=== PATIENT | male | born 1950 | race African-American/Black ===

== ENCOUNTER 2016-06-09 12:43 | Emergency (ER) | payer MEDICARE, OTHER ==
[~2016-06-09] VITALS: Ht 175.3 cm; Wt 86.2 kg
[~2016-06-09 12:43] MED LIST: BENADRYL ALLERG25 M1 PO; CATAPRES0.1 MG ORAL; HYDROCHLOROTH12.5 M2 ORAL; NAPHCON-A EYE D15 ML OP; PREDNISONE20 MG ORAL; TENORMIN25 MG ORAL
[2016-06-09 13:20] VITALS: BP 164/98
--- NOTE | 2016-06-09 13:23 | Emergency Room Report ---
History of Present Illness General Chief Complaint: Laceration Present Illness HPI 66 YO Male presents to the ED c/o dry cracking heels bilaterally. since the beginning of summer. Patient denies itching, redness, or swelling of the feet. Patient states that he has been applying aloe vera gel with minimal relief. Patient reports that the dryness has increased over the course of this past week and on the right foot there is one crack that was bleeding 2 days ago. Patient denies history of neuropathy. pt. denies increased temperature to the touch. pt. reports 4/10 pain. Denies numbness tingling or loss of sensation or gross motor movements of the extremities, incontinence of bowel or bladder. Denies CP, Palpitations, LOC , AMS, dizziness, Changes in Vision, Sensation, paresthesias, or a sudden severe headache. Allergies: Coded Allergies: No Known Allergies (Unverified , 08/22/14) Patient History Past Medical History: see triage record Past Surgical History: none Pertinent Family History: none Immunizations: UTD Reviewed Nursing Documentation: PMH: Agreed, PSxH: Agreed Nursing Documentation-PMH Hx Hypertension: Yes Review of Systems All Other Systems: negative except mentioned in HPI Physical Exam Vital Signs Date Time Temp Pulse Resp B/P Pulse Ox O2 Delivery O2 Flow Rate FiO2 06/09/16 13:00 98.1 61 20 164/98 98 Room Air Sp02 EP Interpretation: reviewed, normal General Appearance: no apparent distress, alert, GCS 15, non-toxic Head: normocephalic, atraumatic Eyes: bilateral eye PERRL, bilateral eye normal inspection ENT: hearing grossly normal, normal pharynx, no angioedema, normal voice Neck: full range of motion, supple/symm/no masses Respiratory: chest non-tender, lungs clear, normal breath sounds, speaking full sentences Cardiovascular #1: regular rate, rhythm, no edema Musculoskeletal: back normal, gait/station normal, normal range of motion, non- tender, no calf tenderness Neurologic: alert, oriented x3, responsive, motor strength/tone normal, sensory intact, speech normal Psychiatric: judgement/insight normal, memory normal, mood/affect normal, no suicidal/homicidal ideation Skin: normal color, no rash, warm/dry, well hydrated, other - moderately dry heels bilaterally with callus noted, not suspicious for fungal infection at this time. no evidence of secondary infection Lymphatic: no adenopathy Medical Decision Making PA Attestation Dr. Kraft is my supervising Physician whom patient management has been discussed with. Diagnostic Impression: Primary Impression: Heel callus ER Course Pt. presents to the ED c/o dry cracking heels bilaterally. since the beginning of summer. Ddx considered but are not limited to cellulitis, callus, tinea, fracture, d/L , gout Vital signs: are WNL, pt. is afebrile H&PE are most consistent with bilateral heel calluses ORDERS: none required at this time, the diagnosis is clinical ED INTERVENTIONS: None required at this time. DISCHARGE: At this time pt. is stable for d/c to home. Will provide printed patient care instructions, and any necessary prescriptions. Care plan and follow up instructions have been discussed with the patient prior to discharge. Last Vital Signs Date Time Temp Pulse Resp B/P Pulse Ox O2 Delivery O2 Flow Rate FiO2 06/09/16 13:00 98.1 61 20 164/98 98 Room Air Disposition: HOME, SELF-CARE Condition: Stable Scripts Emollient Combination No.73 (EUCERIN INTENSIVE REPAIR) 78 Gm Cream..g. 1 APPLIC TP BID for 14 Days, #78 GM Prov: Nathaly Ly 06/09/16 Bacitracin Zinc/Polymyx B Sulf (HM DOUBLE ANTIBIOTIC OINTMENT) 28.4 Gm Oint...g. 1 GM TP BID for 14 Days, #56.8 GM Prov: Nathaly Ly 06/09/16 Patient Instructions: Corns and Calluses Additional Instructions: Take medications as directed. Follow up with [facility] in 3-5 days Return sooner to ED if new symptoms occur, or current symptoms become worse. - Please note that this Emergency Department Report was dictated using [employer] technology software, occasionally this can lead to erroneous entry secondary to interpretation by the dictation equipment. Nathaly Ly Jun 09, 2016 13:23
[2016-06-09] MEDS ORDERED: EUCERIN INTENSI TP (13:25)
[2016-06-09] MEDS ORDERED: HM DOUBLE ANT28.4 G1 TP (13:25)
[2016-06-09 13:42] VITALS: BP 164/98
== END 2016-06-09 13:42 | disposition home or self-care (01) ==
LOC: EMR 13:30
DX: L84 Corns and callosities (principal); I10 Essential (primary) hypertension
CPT/HCPCS: 99284

== ENCOUNTER 2017-10-25 05:15 | Emergency (ER) | payer MEDICARE, OTHER ==
[~2017-10-25] VITALS: Ht 175.3 cm; Wt 83.5 kg
[~2017-10-25 05:15] MED LIST changes: +EUCERIN INTENSI TP; +HM DOUBLE ANT28.4 G1 TP
[2017-10-25] MEDS ORDERED: Methocarbamol 750mg tab ORAL ONE (05:45)
[2017-10-25] MEDS ORDERED: Acetaminophen 500mg (ES) tab ORAL ONE (05:45)
[2017-10-25 05:50] VITALS: BP 212/110
[2017-10-25] MEDS ORDERED: ROBAXIN-750750 MG PO (05:53)
[2017-10-25] MEDS ORDERED: TYLENOL EXTRA500 MG ORAL (05:53)
--- NOTE | 2017-10-27 07:28 | Emergency Room Report ---
History of Present Illness General Chief Complaint: Pain Source: Patient Present Illness HPI 67-year-old male presents to ED complaining of hip pain. The pain for the last 2 weeks. Denies any recent injury or fall. Pain is throbbing, 10 out of 10, nonradiating. States he is able to walk but with a cane. No other aggravating or relieving factors. Denies any other associated symptoms Allergies: Coded Allergies: No Known Allergies (Unverified , 08/22/14) Patient History Past Medical History: HTN Past Surgical History: none Pertinent Family History: none Social History: Denies: smoking, alcohol use, drug use Immunizations: UTD Reviewed Nursing Documentation: PMH: Agreed; PSxH: Agreed Nursing Documentation-PMH Hx Hypertension: Yes Review of Systems All Other Systems: negative except mentioned in HPI Physical Exam Vital Signs Date Time Temp Pulse Resp B/P (MAP) Pulse Ox O2 Delivery O2 Flow Rate FiO2 10/25/17 05:18 98.0 73 16 212/110 99 Room Air 98.1 Sp02 EP Interpretation: reviewed, normal General Appearance: no apparent distress, alert, GCS 15, non-toxic Head: normocephalic Eyes: bilateral eye normal inspection, bilateral eye PERRL ENT: normal ENT inspection Neck: normal inspection Respiratory: normal inspection Cardiovascular #1: normal inspection Gastrointestinal: normal inspection Rectal: deferred Genitourinary: no CVA tenderness, no vertebral tenderness Musculoskeletal: pelvis stable, tender - paraspinal lumbar tendernessw Neurologic: alert, oriented x3, responsive, motor strength/tone normal, sensory intact, speech normal Psychiatric: normal inspection Skin: normal inspection Lymphatic: normal inspection Medical Decision Making Diagnostic Impression: Primary Impression: Back pain Qualified Codes: M54.5 - Low back pain ER Course Hospital Course 67-year-old male presents ED complaining of R hip pain. No evidence of trauma Differential diagnoses include: fx, dislocation, contusion Clinical course Patient placed on stretcher. After initial history, physical exam reveals elderly male in no acute distress. On exam there is full range of motion in the right hip. No pelvic instability. Patient does have pain to the right lower back. No midline tenderness. No flank pain. Patient states he confused his back pain for hip pain. Pain does appear muscular. Given lack of trauma and no focal neurological deficits, no imaging required. We will prescribe analgesics and muscle relaxers. Recommend close follow-up with PMD given medications here with symptosm improved Diagnosis - back pain Stable and discharged to home with prescription for Tylenol, Robaxin. Followup with PMD. Return to ED if symptoms recur or worsen Last Vital Signs Date Time Temp Pulse Resp B/P (MAP) Pulse Ox O2 Delivery O2 Flow Rate FiO2 10/25/17 05:50 98.1 16 212/110 99 Room Air 98.1 10/25/17 05:18 73 Status: improved Disposition: HOME, SELF-CARE Condition: Stable Scripts Methocarbamol* (ROBAXIN-750*) 750 Mg Tablet 750 MG PO TID, #21 TAB 0 Refills Prov: Juan Fierro MD 10/25/17 Acetaminophen* (TYLENOL EXTRA STRENGTH*) 500 Mg Tablet 500 MG ORAL Q8H PRN for Prn Headache/Temp > 101, #30 TAB 0 Refills Prov: Juan Fierro MD 10/25/17 Patient Instructions: Back Pain, Adult, [id number] Juan Fierro MD Oct 27, 2017 07:28
== END 2017-10-25 05:57 | disposition home or self-care (01) ==
LOC: EMR 05:40
DX: M25.551 Pain in right hip (principal); M54.5 Low back pain; I10 Essential (primary) hypertension
CPT/HCPCS: 99284

== ENCOUNTER 2019-07-14 11:41 | Emergency (ER) | payer MEDICARE, OTHER ==
[~2019-07-14] VITALS: Ht 175.3 cm; Wt 79.4 kg
[~2019-07-14 11:41] MED LIST changes: +ROBAXIN-750750 MG PO; +TYLENOL EXTRA500 MG ORAL
[2019-07-14 12:06] VITALS: BP 130/76
[2019-07-14] MEDS ORDERED: ERYTHROMYCIN1 G1 RIGHT EYE (12:50)
[2019-07-14] MEDS ORDERED: ACYCLOVIR800 MG ORAL (12:50)
[2019-07-14 13:10] VITALS: BP 125/75
--- NOTE | 2019-07-15 07:59 | Emergency Room Report ---
History of Present Illness General Chief Complaint: Skin Rash/Abscess Source: Patient Present Illness HPI 69-year-old male presents ED for evaluation of rash to forehead. Noticed it today. States it is itchy. Denies pain. Only notes it on one side. Notes a is close to his eye. Denies any photophobia or blurry vision. Denies any sick contacts or recent travel. Denies any cough. Denies any fevers or chills. States he has been self isolating due to coronavirus pandemic. No other aggravating relieving factors. Denies any other associated symptoms COVID-19 risk:Contact w/high r: No COVID-19 risk:Travel to affect: No Has patient experienced odonnell: No Allergies: Coded Allergies: No Known Allergies (Unverified , 08/22/14) Patient History Past Medical History: HTN Past Surgical History: none Pertinent Family History: none Social History: Denies: smoking, alcohol use, drug use Immunizations: UTD Reviewed Nursing Documentation: PMH: Agreed; PSxH: Agreed Nursing Documentation-PMH Past Medical History: No History, Except For Hx Hypertension: Yes Review of Systems All Other Systems: negative except mentioned in HPI Physical Exam Vital Signs Date Time Temp Pulse Resp B/P (MAP) Pulse Ox O2 Delivery O2 Flow Rate FiO2 07/14/19 11:55 98.2 58 16 133/83 (100) 95 Room Air Sp02 EP Interpretation: reviewed, normal General Appearance: no apparent distress, alert, GCS 15, non-toxic Head: normocephalic, atraumatic Eyes: right eye Scleral Injection; left eye normal inspection; bilateral eye PERRL, bilateral eye EOMI, bilateral eye visual acuity ENT: hearing grossly normal, normal pharynx, no angioedema, normal voice Neck: full range of motion, supple/symm/no masses Respiratory: chest non-tender, lungs clear, normal breath sounds, speaking full sentences Cardiovascular #1: regular rate, rhythm, no edema Cardiovascular #2: 2+ carotid (R), 2+ carotid (L), 2+ radial (R), 2+ radial (L) , 2+ dorsalis pedis (R), 2+ dorsalis pedis (L) Gastrointestinal: normal bowel sounds, non tender, soft, non-distended, no guarding, no rebound Rectal: deferred Genitourinary: normal inspection, no CVA tenderness Musculoskeletal: back normal, normal range of motion, gait/station normal, non- tender Neurologic: alert, motor strength/tone normal, oriented x3, sensory intact, responsive, speech normal Psychiatric: judgement/insight normal, memory normal, mood/affect normal, no suicidal/homicidal ideation Reflexes: 3+ bicep (R), 3+ bicep (L), 3+ tricep (R), 3+ tricep (L), 3+ knee (R) , 3+ knee (L) Skin: rash - vesicular rash noted in clusters to R side of forehead. not crossing midline. no erythema. Lymphatic: no adenopathy Medical Decision Making Diagnostic Impression: Primary Impression: Shingles Qualified Codes: B02.8 - Zoster with other complications ER Course Hospital Course 69-year-old male presents to ED with rash to forehead Differential diagnoses include: Cellulitis, dermatitis, insect bite, abscess Clinical course Patient placed on stretcher. After initial history, physical exam reveals an elderly male in no acute distress. On exam there is a vesicular rash in clusters noted on the right side of the forehead. Not crossing midline. Nonerythematous base. It appears to be encroaching on the eye. Patient has some erythema to the conjunctiva. No change in visual acuity. Afebrile, non-toxic appearing. I discussed findings with patient. Consistent with shingles. Concern for ophthalmic involvement. Patient is not immunocompromised. Will discharge with acyclovir. per discussion with opthamology I will also prescribe with erythromycin eye ointment. Safe for discharge for close outpatient follow-up. I will provide Optho referrals. In light of current coronavirus pandemic I do encourage self- isolation as much as possible. Patient agrees Diagnosis - shingles stable and discharged to home with prescription for Erythromycin ointment, Acyclovir. Instructed to followup with PMD/Optho. Instructed return to ED if symptoms recur or worsen Last Vital Signs Date Time Temp Pulse Resp B/P (MAP) Pulse Ox O2 Delivery O2 Flow Rate FiO2 07/14/19 13:10 98.2 76 20 125/75 98 Room Air Disposition: HOME, SELF-CARE Condition: Stable Scripts Erythromycin Base (Erythromycin) 1 Gm Oint...g. 1 APPLIC RIGHT EYE QID for 7 Days, #1 GM Prov: Juan Fierro MD 07/14/19 Acyclovir* (ZOVIRAX*) 800 Mg Tablet 800 MG ORAL FIVE TIMES A DAY for 7 Days, #35 TAB Prov: Juan Fierro MD 07/14/19 Referrals: Manish Reddy M.D., MD Patient Instructions: Shingles, [id number] Juan Fierro MD Jul 15, 2019 07:59
== END 2019-07-14 13:10 | disposition home or self-care (01) ==
LOC: EMR 12:33
DX: B02.8 Zoster with other complications (principal); I10 Essential (primary) hypertension
CPT/HCPCS: 99282

== ENCOUNTER 2020-01-01 09:15 | Inpatient (IN) | payer MEDICARE, OTHER ==
[~2020-01-01] VITALS: Ht 175.3 cm; Wt 85.6 kg
[~2020-01-01 09:15] MED LIST changes: +ACYCLOVIR800 MG ORAL; +ERYTHROMYCIN1 G1 RIGHT EYE
--- NOTE | 2020-01-01 09:20 | Emergency Room Report ---
History of Present Illness General Chief Complaint: To Be Triaged Source: Patient Present Illness HPI 69-year-old male PMHX HTN, renal CA s/p resection 2 years ago (therefore has solitary kidney), arthritis presents with atraumatic right knee swelling x5 days. Due to significant pain, patient has had to walk with a walker, which he normally never does. He has been taking motrin, aspirin, tylenol and norco at home without relief. Denies trauma, laceration, calf swelling, shortness of breath, hemoptysis, cough , chest pain, nausea, vomiting, diarrhea, fever or other symptoms. Overall pt endorses feeling "bad" The patient's symptoms were gradual onset, severity was moderate, duration since 5 days. Quality: Aching, swollen Past medical history: Hypertension, renal CA Past surgical history: Kidney resection 2018 Smoking: Denies Alcohol use: Denies Drug use: Denies Review of systems: CONST: No fevers or chills, No night sweats PULMONARY: No productive cough, No shortness of breath CARDIAC: No chest pain, No palpitations GI: No vomiting, No diarrhea , No melena_or_BRBPR : No dysuria, No hematuria, No discharge NEURO: No new_focal_weakness_or_numbness, No confusion, No vision changes 14 point Review of Systems is otherwise negative except per HPI Physical Exam: GENERAL: Awake_alert_ nontoxic, no acute distress Spo2 98% on RA -normal EYES: Extraocular muscles are intact. Conjunctivae clear. Lids without swelling ENT: External nose and ear normal_in_appearance. Oropharynx clear. Head_ atraumatic, Moist_oral_mucosa NECK: No JVD. No meningismus. No thyromegaly. Supple. Trachea midline RESP: Normal respiratory effort. Symmetric rise. No stridor. Clear_to_ auscultation_No_rales_No_wheezes CARDIAC: Regular rate and regular rhytm. No_significant pedal edema. ABDOMEN: Soft. Nondistended. Nontender_No_rebound_or_guarding. MSK: Normal muscle tone, without rigidity. Extremities without asymmetric deformity or swelling. Right knee: Minimally swollen. Mild pain with range of motion in flexion and extension. Warm to palpation. No overlying cellulitis. Negative Homans sign. Compartments are soft and compressible. Sensation is intact to light touch. No deformity SKIN: Warm and dry. No visible cyanosis or pallor NEUROLOGIC: Alert, oriented x3. Motor_and_sensation_grossly_intact. No truncal ataxia. Gait_normal Psych: Normal mood and affect, normal judgment and insight - COORDINATION OF CARE Case was discussed with: Patient , Patient's Family Any labs and imaging that were ordered were interpreted as part of the medical decision making: Medical Decision Making/Plan: Differential diagnosis includes non-inflammatory vs inflammatory arthritis, musculoskeletal pain, fracture, dislocation, DOUBT compartment syndrome, arterial occlusion, nerve damage, among others. Pt is afebrile and well appearing. He has mild R knee swelling anterior to the knee cap. Sterile R Knee arthrocentesis was performed at bedside, but did not yield significant synovial aspirate. Only 3cc of blood was collected. Pt, however, has no leukocytosis or fever to suggest septic arthritis at this time. Orthopedics Dr Frazier was consulted for recommendations which are still pending. Xrays of the R knee show swelling inferior to the patella. No dislocation or fracture. Pt received IVF, IV abx, and pain control Compartments are soft, the patient is able to bear weight and has no neurologic deficits. No evidence of fracture, dislocation, foreign body, significant nerve damage, compartment syndrome at this time. Distally the patient has capillary refill <2 seconds and strong pulses. There is no pallor or pain out of proportion to exam. There is no significant swelling, deformity, or report of significant dislocation that subsequently reduced. No evidence of arterial occlusion or injury. The associated joints have full range of motion without any significant pain or restriction in mobility. No evidence at this time of major ligamentous disruption. Incidentally, patient was noted to have PREET failure with Cr 2.8 and no previous for comparison. Pt has solitary kidney and is therefore at risk for renal failure. K is WNL. I spoke with Dr. Sandra, and reviewed the patients presentation, workup, results, and treatment. They will admit the patient for further care and evaluation, and assume care of the patient at this time. Allergies: Coded Allergies: No Known Allergies (Unverified , 08/22/14) COVID-19 Screening Contact w/high risk pt: No Recent Travel to affected area: No Experienced COVID-19 symptoms?: No Nursing Documentation-PMH Hx Hypertension: Yes Physical Exam Sp02 EP Interpretation: reviewed, normal Medical Decision Making Diagnostic Impression: Primary Impression: Renal failure Additional Impressions: Solitary kidney Right knee pain HTN (hypertension) Swelling of right knee joint Disposition: ADMITTED INPATIENT Admit Decision Time: 11:00 Condition: Stable Jesika Rincon D.O. Jan 01, 2020 09:20
--- NOTE | 2020-01-01 09:30 | NUR ---
ED Nurse Note: Pt walked in from home c/o right knee pain and swelling x 5 days. Pt denies injury. Pt reports taking motrin and icing it at home x 5 days. Respirations even and unlabord on room air. Vitals stable as documented. Pt drowsy, A+Ox4, speaking in complete sentences when awake.
[2020-01-01 09:40] VITALS: BP 148/88
[2020-01-01] MEDS ORDERED: cefTRIAXone 1 GM in NS 55 ML IVPB ONE (09:45)
[2020-01-01] MEDS ORDERED: Lidocaine 1% Plain 30 ml INJ ONE (09:45)
[2020-01-01] MEDS ORDERED: Morphine Sulfate 2mg/ml Inj(IV/IM USE ONLY) IVP ONE (09:45)
[2020-01-01] MEDS ORDERED: Vancomycin 1 GM in NS 275 ML IVPB ONE (09:45)
[2020-01-01] MEDS ORDERED: Ketorolac 30mg Inj ONE (09:52)
--- NOTE | 2020-01-01 09:58 | NUR ---
ED Nurse Note: pt falling asleep easily while staff is in the room. ED MD aware. Per MD, hold morphine for now and give toradol.
[2020-01-01] MEDS ORDERED: Ketorolac 30mg Inj IV ONE (10:00)
[2020-01-01 10:20] LABS: BASOPHILS % (AUTO) 1.9 % (0.0-2.0); EOSINOPHILS % (AUTO) 7.6 % (0.0-3.0); HEMATOCRIT 46.9 % (42.0-52.0); HEMOGLOBIN 15.2 G/DL (14.2-18.0); LYMPHOCYTES % (AUTO) 18.4 % (20.0-45.0); MEAN CORPUSCULAR VOLUME 95 FL (80-99); MONOCYTES % (AUTO) 7.5 % (1.0-10.0); NEUTROPHILS % (AUTO) 64.6 % (45.0-75.0); PLATELET COUNT 232 K/UL (150-450); RED BLOOD COUNT 4.96 M/UL (4.70-6.10); RED CELL DISTRIBUTION WIDTH 11.8 % (11.6-14.8); WHITE BLOOD COUNT 6.8 K/UL (4.8-10.8)
[2020-01-01 10:39] LABS: ANION GAP 12 mmol/L (5-15); BLOOD UREA NITROGEN 39 mg/dL (7-18); CALCIUM 9.6 MG/DL (8.5-10.1); CARBON DIOXIDE 18 MMOL/L (21-32); CHLORIDE 106 MMOL/L (98-107); CREATININE 2.8 MG/DL (0.55-1.30); POTASSIUM 5.1 MMOL/L (3.5-5.1); SODIUM 136 MMOL/L (136-145)
--- NOTE | 2020-01-01 10:40 | NUR ---
ED Nurse Note: per ED MD, okay to administer morphine now d/t severe pain.
[2020-01-01 10:43] LABS: ALANINE AMINOTRANSFERASE 13 U/L (12-78); ALBUMIN/GLOBULIN RATIO 0.9 (1.0-2.7); ALKALINE PHOSPHATASE 75 U/L (46-116); ASPARTATE AMINO TRANSFERASE 13 U/L (15-37); BILIRUBIN,TOTAL 0.4 MG/DL (0.2-1.0)
--- NOTE | 2020-01-01 11:22 | NUR ---
ED Nurse Note: spoke with daughter on the phone regarding pt's medical history. Per daughter, pt had a 10 pound kidney tumor and his entire kidney was removed. Added to medical history in [facility]
[2020-01-01 11:33] VITALS: BP 151/79
[2020-01-01 13:30] VITALS: BP 155/71
--- NOTE | 2020-01-01 14:12 | NUR ---
ED Nurse Note: Dr. Riggins @ bedside
--- NOTE | 2020-01-01 14:22 | Consultation ---
Consult Note Consult Note I am asked to evaluate the patient at the request of Dr. Davis for renal failure. Patient seen, interviewed, examined in emergency room. Present illness: 69-year-old male presents with right knee swelling x5 days. Due to significant pain, patient has had to walk with a walker, which he normally never does. Denies trauma, laceration, calf swelling, shortness of breath, hemoptysis, cough , chest pain, nausea, vomiting, diarrhea, fever or other symptoms. The patient's symptoms were gradual onset, severity was moderate, duration since 5 days. Past medical history: Hypertension Past surgical history: Patient had a nephrectomy 2 years ago at [facility] as a result of it tomorrow Smoking: Denies Alcohol use: Denies Drug use: Denies COVID-19 Screening Contact w/high risk pt: No Recent Travel to affected area: No Experienced COVID-19 symptoms?: No Assessment/Plan Acute renal failure Solitary functioning kidney Previous nephrectomy due to tumor Arthritis the right knee Suggestions Kidney ultrasound Slow hydration Urine studies Monitor renal parameters Norvasc for blood pressure Clonidine PRN for high blood pressure Flomax Avoid nonsteroidal anti-inflammatories Renal diet Per consultants Adrián Riggins MD Jan 01, 2020 14:22
--- NOTE | 2020-01-01 14:31 | NUR ---
ED Nurse Note: urine sent to lab
--- NOTE | 2020-01-01 14:36 | NUR ---
ED Nurse Note: Report given to Kathy RN on 4E. Spoke with Crowtara, pt's daughter on the phoneand let her know pt's room number. Don -- [phone]
[2020-01-01] MEDS ORDERED: AMLODIPINE BES2.5 MG ORAL (14:44)
[2020-01-01] MEDS ORDERED: BENAZEPRIL HCL10 MG ORAL (14:44)
--- NOTE | 2020-01-01 14:44 | NUR ---
ED Nurse Note: Pt transferred safely to 4E with all belongings including phone and walker
[2020-01-01] MEDS ORDERED: Acetaminophen 500mg (ES) tab ORAL PRN (14:47)
--- NOTE | 2020-01-01 15:10 | Diagnostic Imaging Report ---
Indication: Right knee pain Technique: 3 views of the right knee Comparison: None Findings: No suprapatellar effusion. Normal bony alignment. No acute fractures. No dislocations. Joint spaces are preserved Impression: Negative
[2020-01-01 15:29] LABS: APPEARANCE,URINE CLEAR; BILIRUBIN, URINE NEGATIVE (NEGATIVE); COLOR,URINE PALE YELLOW; GLUCOSE, URINE (UA) NEGATIVE (NEGATIVE); KETONES,URINE NEGATIVE (NEGATIVE); LEUKOCYTE ESTERASE ,URINE NEGATIVE (NEGATIVE); NITRITE,URINE NEGATIVE (NEGATIVE); PH,URINE 5 (4.5-8.0); PROTEIN,URINE 3+ (NEGATIVE); UROBILINOGEN,URINE NORMAL MG/DL (0.0-1.0)
[2020-01-01] MEDS: D5 1/2NS 1,000 ML IV SCH (15:34)
[2020-01-01] MEDS: Tamsulosin 0.4mg cap ORAL SCH ×2 (15:47→17:42)
[2020-01-01 16:00] VITALS: BP 151/86
--- NOTE | 2020-01-01 17:22 | NUR ---
NURSE NOTES: report was initially received by charge nurse, KAIDEN Chavez from ER, then given report to primary nurse. Patient was borught to floor via wheel chair, with walker brought from home. Patient is AAOx4, able to make it needs known, ambulatory with staff member assist using walker. Patient is on room air, breathing is even and unlabored, no complaints of pain noted at this time. Belongings checked and signed with patient. Patient has slight swelling on right knee. Skin is intact, IV site patent and intact. Patient verbalized "i have no health history other than HTN and a tumor in my kidney". RN instructed patient to use call light before ambulating if felt dizzy or weak. Bed is locked and placed in lowest position. Call light within reach. Will continue to monitor
--- NOTE | 2020-01-01 17:50 | Diagnostic Imaging Report ---
Indication: Acute renal failure, history of renal tumor in nephrectomy Technique: Grayscale and duplex images of the kidneys, retroperitoneum, and bladder were obtained. Comparison: none Findings: Right kidney has been removed. Left kidney measures 10.1 cm in length. Left kidney demonstrates normal echogenicity. No hydronephrosis. There is a small parapelvic cyst and a a few small cortical cysts demonstrated. Normal inferior vena cava. Bladder is normal. Prostate is somewhat enlarged, calculated volume 49 mL Incidental note is made of multiple hepatic cysts Impression: Absent right kidney No evidence of left hydronephrosis Left renal parapelvic and cortical cysts Prostatomegaly Incidental finding of hepatic cysts.
--- NOTE | 2020-01-01 19:19 | NUR ---
HAND-OFF: Report given to KAIDEN Vaughan.
--- NOTE | 2020-01-01 19:33 | NUR ---
NURSE NOTES: Received patient in bed, awake, alert, oriented x4 able to verbalize his needs, patient is on bedrest, walker at bedside. IV site is clean dry and intact, call light is within reach, bed is lowered, locked, alarm is on, will continue to monitor for comfort and safety.
[2020-01-01 20:00] VITALS: BP 134/75
[2020-01-02] VITALS: BP 122/86
[2020-01-02 04:00] VITALS: BP 150/98
--- NOTE | 2020-01-02 07:31 | NUR ---
NURSE HAND-OFF: Important Events on Shift: no events Patient Status: stable Diet: renal Pending Orders: Pending Results/Labs: Pending MD notification: Latest Vital Signs: Temperature 97.3 , Pulse 69 , B/P 150 /98 , Respiratory Rate 19 , O2 SAT 98 , Room Air, O2 Flow Rate . Vital Sign Comment: Latest Robles Fall Score: 35 Fall Risk: Medium Risk Safety Measures: Call light Within Reach, Bed Alarm Zone 1, Side Rails Side Rails x1, Bed position Low and Locked. Fall Precautions: Patient Fall Education Report given to KAIDEN Pillai
--- NOTE | 2020-01-02 07:38 | NUR ---
NURSE NOTES: pt is in the bed asleep and arousable. respiration is even and unlabored on room air. No facial grimacing for pain noted at this time. nurse exchanges greetings with pt. no acute distress noted. call light is within reach.
[2020-01-02 08:00] VITALS: BP 146/90
--- NOTE | 2020-01-02 08:45 | Consultation ---
History of Present Illness General Date patient seen: Jan 02, 2020 Time patient seen: 08:30 - am Chief Complaint: Right knee pain Referring physician: Jocy Reason for Consultation: Pain Management Present Illness HPI This is a 69-year-old male being [place] [facility] [place]. Patient was admitted under the care of Dr. Sandra due to Renal failure, c/o atraumatic right knee swelling x5 days and severe pain gradual onset, severity was moderate, duration since 5 days. Quality: Aching, swollen. At this time he reports pain has reduced since procedure performed in ER. We were consulted so patient has adequate pain control while here in the hospital. Allergies: Coded Allergies: No Known Allergies (Unverified , 08/22/14) Medication History Scheduled Amlodipine Besylate* (Amlodipine Besylate*), Unknown Dose ORAL DAILY, (Reported) Atenolol (Tenormin), 25 MG ORAL DAILY, (Reported) Benazepril Hcl* (Benazepril Hcl*), Unknown Dose ORAL DAILY, (Reported) Clonidine Hcl* (Catapres*), 0.1 MG ORAL EVERY 6 HOURS, (Reported) Discontinued Medications Acetaminophen* (Tylenol Extra Strength*), 500 MG ORAL Q8H PRN for Prn Headache/ Temp > 101 Discontinued Reason: Pt stopped taking med Acyclovir* (Zovirax*), 800 MG ORAL FIVE TIMES A DAY Discontinued Reason: Pt stopped taking med Bacitracin Zinc/Polymyx B Sulf (Hm Double Antibiotic Ointment), 1 GM TP BID Discontinued Reason: Pt stopped taking med Diphenhydramine Hcl (Benadryl Allergy), 50 MG PO QID Discontinued Reason: Pt stopped taking med Emollient Combination No.73 (Eucerin Intensive Repair), 1 APPLIC TP BID Discontinued Reason: Pt stopped taking med Erythromycin Base (Erythromycin), 1 APPLIC RIGHT EYE QID Discontinued Reason: Pt stopped taking med Hydrochlorothiazide* (Hydrochlorothiazide*), 12.5 MG ORAL DAILY, (Reported) Discontinued Reason: Pt stopped taking med Methocarbamol* (Robaxin-750*), 750 MG PO TID Discontinued Reason: Pt stopped taking med Naphazoline Hcl/Phenir Mal (Naphcon-A Eye Drops), 15 ML OP QID PRN for Itching Discontinued Reason: Pt stopped taking med Prednisone* (Prednisone*), 40 MG ORAL DAILY Discontinued Reason: Pt stopped taking med Patient History Healthcare decision maker Resuscitation status Advanced Directive on File Patient History Narrative Past medical history: Hypertension, renal CA Past surgical history: Kidney resection 2018 Smoking: Denies Alcohol use: Denies Drug use: Denies Review of Systems ROS Narrative CONST: No fevers or chills, No night sweats PULMONARY: No productive cough, No shortness of breath CARDIAC: No chest pain, No palpitations GI: No vomiting, No diarrhea , No melena_or_BRBPR : No dysuria, No hematuria, No discharge NEURO: No new_focal_weakness_or_numbness, No confusion, No vision changes Physical Exam Physical Exam Narrative GENERAL: Awake_alert_ nontoxic, no acute distress Spo2 98% on RA -normal EYES: Extraocular muscles are intact. Conjunctivae clear. Lids without swelling ENT: External nose and ear normal_in_appearance. Oropharynx clear. Head_ atraumatic, Moist_oral_mucosa NECK: No JVD. No meningismus. No thyromegaly. Supple. Trachea midline RESP: Normal respiratory effort. Symmetric rise. No stridor. Clear_to_ auscultation_No_rales_No_wheezes CARDIAC: Regular rate and regular rhytm. No_significant pedal edema. ABDOMEN: Soft. Nondistended. Nontender_No_rebound_or_guarding. MSK: Normal muscle tone, without rigidity. Extremities without asymmetric deformity or swelling. Right knee: Minimally swollen. Mild pain with range of motion in flexion and extension. Warm to palpation. No overlying cellulitis. Negative Homans sign. Compartments are soft and compressible. Sensation is intact to light touch. No deformity SKIN: Warm and dry. No visible cyanosis or pallor NEUROLOGIC: Alert, oriented x3. Motor_and_sensation_grossly_intact. No truncal ataxia. Gait_normal Psych: Normal mood and affect, normal judgment and insight Last 24 Hour Vital Signs Date Time Temp Pulse Resp B/P (MAP) Pulse Ox O2 Delivery O2 Flow Rate FiO2 01/02/20 08:00 98.2 66 19 146/90 (108) 96 01/02/20 04:00 97.3 69 19 150/98 (115) 98 01/02/20 00:00 97.3 78 19 122/86 (98) 98 01/01/20 21:00 Room Air 01/01/20 20:00 96.8 70 19 134/75 (94) 100 01/01/20 16:00 97.2 67 151/86 (107) 01/01/20 15:47 65 151/86 01/01/20 15:11 Room Air 01/01/20 14:44 98.1 72 18 144/79 97 Room Air 01/01/20 13:30 97.9 65 18 155/71 96 Room Air 01/01/20 11:33 98.3 77 20 151/79 98 Room Air 01/01/20 09:40 97.5 72 20 148/88 98 Room Air 01/01/20 09:19 97.9 67 20 157/81 (106) 96 Room Air Intake and Output 01/01/20 01/02/20 19:00 07:00 Intake Total 300 ml Output Total 600 ml Balance 300 ml -600 ml Intake Oral 300 ml Output Urine Total 600 ml # Voids 2 # Bowel Movements 1 Laboratory Tests Test 01/01/20 09:45 01/01/20 14:40 White Blood Count 6.8 K/UL (4.8-10.8) Red Blood Count 4.96 M/UL (4.70-6.10) Hemoglobin 15.2 G/DL (14.2-18.0) Hematocrit 46.9 % (42.0-52.0) Mean Corpuscular Volume 95 FL (80-99) Mean Corpuscular Hemoglobin 30.6 PG (27.0-31.0) Mean Corpuscular Hemoglobin Concent 32.4 G/DL (32.0-36.0) Red Cell Distribution Width 11.8 % (11.6-14.8) Platelet Count 232 K/UL (150-450) Mean Platelet Volume 6.9 FL (6.5-10.1) Neutrophils (%) (Auto) 64.6 % (45.0-75.0) Lymphocytes (%) (Auto) 18.4 % (20.0-45.0) L Monocytes (%) (Auto) 7.5 % (1.0-10.0) Eosinophils (%) (Auto) 7.6 % (0.0-3.0) H Basophils (%) (Auto) 1.9 % (0.0-2.0) Prothrombin Time 10.7 SEC (9.30-11.50) Prothromb Time International Ratio 1.0 (0.9-1.1) Activated Partial Thromboplast Time 34 SEC (23-33) H Sodium Level 136 MMOL/L (136-145) Potassium Level 5.1 MMOL/L (3.5-5.1) Chloride Level 106 MMOL/L (98-107) Carbon Dioxide Level 18 MMOL/L (21-32) L Anion Gap 12 mmol/L (5-15) Blood Urea Nitrogen 39 mg/dL (7-18) H Creatinine 2.8 MG/DL (0.55-1.30) H Estimat Glomerular Filtration Rate 27.3 mL/min (>60) Glucose Level 96 MG/DL (74-106) Calcium Level 9.6 MG/DL (8.5-10.1) Total Bilirubin 0.4 MG/DL (0.2-1.0) Aspartate Amino Transf (AST/SGOT) 13 U/L (15-37) L Alanine Aminotransferase (ALT/SGPT) 13 U/L (12-78) Alkaline Phosphatase 75 U/L (46-116) Total Protein 8.7 G/DL (6.4-8.2) H Albumin 4.0 G/DL (3.4-5.0) Globulin 4.7 g/dL Albumin/Globulin Ratio 0.9 (1.0-2.7) L Urine Color Pale yellow Urine Appearance Clear Urine pH 5 (4.5-8.0) Urine Specific [place] 1.020 (1.005-1.035) Urine Protein 3+ (NEGATIVE) H Urine Glucose (UA) Negative (NEGATIVE) Urine Ketones Negative (NEGATIVE) Urine Blood Negative (NEGATIVE) Urine Nitrite Negative (NEGATIVE) Urine Bilirubin Negative (NEGATIVE) Urine Urobilinogen Normal MG/DL (0.0-1.0) Urine Leukocyte Esterase Negative (NEGATIVE) Urine RBC 0 /HPF (0 - 0) Urine WBC 0-2 /HPF (0 - 0) Urine Squamous Epithelial Cells None /LPF (NONE/OCC) Urine Bacteria Few /HPF (NONE) Urine Random Sodium 58 mmol/L (20-110) Microbiology Date/Time Source Procedure Growth Status 01/01/20 14:03 Nasopharynx SARS-CoV-2 RdRp Gene Assay - Final Complete Height (Feet): 5 Height (Inches): 9.00 Weight (Pounds): 175 Medications Current Medications Medications (Trade) Dose Ordered Sig/Lyle Route PRN Reason Start Time Stop Time Status Last Admin Dose Admin Acetaminophen (Tylenol) 500 mg Q8H PRN ORAL headache & fever 01/01/20 14:47 01/31/20 14:46 Amlodipine Besylate (Norvasc) 5 mg DAILY ORAL 01/01/20 15:00 01/31/20 14:59 01/01/20 15:47 Clonidine HCl (Catapres Tab) 0.1 mg Q4H PRN ORAL Blood pressure over 165 systol 01/01/20 14:45 03/31/20 14:44 Dextrose/Sodium Chloride 1,000 ml @ 50 mls/hr Q20H IV 01/01/20 14:45 01/31/20 14:44 01/01/20 15:34 Tamsulosin HCl (Flomax) 0.4 mg BID ORAL 01/01/20 14:38 01/31/20 14:37 01/01/20 17:42 Assessment/Plan Assessment/Plan: (1) Right knee pain (2) Right knee Osteoarthritis Patient will be continued on Tylenol D/w Dr. Jennings and he concurred. Thank you for consult. Hunter Monroe Jan 02, 2020 08:45
[2020-01-02 08:58] LABS: BASOPHILS % (AUTO) 1.7 % (0.0-2.0); EOSINOPHILS % (AUTO) 12.6 % (0.0-3.0); HEMATOCRIT 41.1 % (42.0-52.0); HEMOGLOBIN 13.6 G/DL (14.2-18.0); LYMPHOCYTES % (AUTO) 22.2 % (20.0-45.0); MEAN CORPUSCULAR VOLUME 94 FL (80-99); MONOCYTES % (AUTO) 7.7 % (1.0-10.0); NEUTROPHILS % (AUTO) 55.8 % (45.0-75.0); PLATELET COUNT 193 K/UL (150-450); RED BLOOD COUNT 4.39 M/UL (4.70-6.10); RED CELL DISTRIBUTION WIDTH 11.6 % (11.6-14.8); WHITE BLOOD COUNT 5.5 K/UL (4.8-10.8)
[2020-01-02] MEDS: Tamsulosin 0.4mg cap ORAL SCH ×2 (08:59→18:23)
[2020-01-02 09:55] LABS: ALANINE AMINOTRANSFERASE 12 U/L (12-78); ALBUMIN 3.4 G/DL (3.4-5.0); ALBUMIN/GLOBULIN RATIO 0.9 (1.0-2.7); ALKALINE PHOSPHATASE 63 U/L (46-116); ANION GAP 12 mmol/L (5-15); ASPARTATE AMINO TRANSFERASE 14 U/L (15-37); BILIRUBIN,TOTAL 0.3 MG/DL (0.2-1.0); BLOOD UREA NITROGEN 41 mg/dL (7-18); CALCIUM 8.6 MG/DL (8.5-10.1); CARBON DIOXIDE 19 MMOL/L (21-32); CHLORIDE 109 MMOL/L (98-107); CREATININE 2.8 MG/DL (0.55-1.30); GAMMA GLUTAMYL TRANSPEPTIDASE 13 U/L (5-85); PHOSPHORUS 3.4 MG/DL (2.5-4.9); POTASSIUM 5.4 MMOL/L (3.5-5.1); SODIUM 140 MMOL/L (136-145)
--- NOTE | 2020-01-02 10:05 | NUR ---
PT EVALUATION NOTE Patient seen for initial evaluation. Patient presents with independence with all functional mobility, ambulates with good balance without assistive device. Skilled inpatient PT intervention not indicated, patient discharged from PT. Patient is safe to function with nursing supervision, Rosas RICHEY notified.
[2020-01-02] MEDS: D5 1/2NS 1,000 ML IV SCH (11:09)
[2020-01-02 12:00] VITALS: BP 154/87
[2020-01-02] MEDS ORDERED: Calcitriol 0.5mcg Cap ORAL SCH (12:45)
[2020-01-02] MEDS ORDERED: Sodium Polystyrene Sulfonate 15gm Powder ORAL SCH (12:45)
--- NOTE | 2020-01-02 12:52 | Nephrology Progress Note ---
Assessment/Plan Problem List: (1) PREET (acute kidney injury) (2) Renal failure (ARF), acute on chronic (3) Solitary kidney (4) Swelling of right knee joint (5) HTN (hypertension) Assessment Acute renal failure Solitary functioning kidney Previous nephrectomy due to tumor Arthritis the right knee Plan Kidney ultrasound reviewed has 1 functioning kidney. Right kidney absent Continue slow hydration Urine studies noted Monitor renal parameters, as serum creatinine remains at 2.8 Norvasc for blood pressure, dose adjusted Clonidine PRN for high blood pressure Flomax twice daily Avoid nonsteroidal anti-inflammatories Renal diet Kayexalate for high potassium as needed Vitamin D3 and Rocaltrol p.o. Per consultants Subjective ROS Limited/Unobtainable: No Constitutional: Reports: malaise Objective Objective Last 24 Hour Vital Signs Date Time Temp Pulse Resp B/P (MAP) Pulse Ox O2 Delivery O2 Flow Rate FiO2 01/02/20 12:00 97.8 70 18 154/87 (109) 97 01/02/20 09:00 Room Air 01/02/20 08:59 66 146/90 01/02/20 08:00 98.2 66 19 146/90 (108) 96 01/02/20 04:00 97.3 69 19 150/98 (115) 98 01/02/20 00:00 97.3 78 19 122/86 (98) 98 01/01/20 21:00 Room Air 01/01/20 20:00 96.8 70 19 134/75 (94) 100 01/01/20 16:00 97.2 67 151/86 (107) 01/01/20 15:47 65 151/86 01/01/20 15:11 Room Air 01/01/20 14:44 98.1 72 18 144/79 97 Room Air 01/01/20 13:30 97.9 65 18 155/71 96 Room Air Intake and Output 01/01/20 01/02/20 18:59 06:59 Intake Total 300 ml Output Total 600 ml Balance 300 ml -600 ml Intake Oral 300 ml Output Urine Total 600 ml # Voids 2 # Bowel Movements 1 Current Medications Medications (Trade) Dose Ordered Sig/Lyle Route PRN Reason Start Time Stop Time Status Last Admin Dose Admin Acetaminophen (Tylenol) 500 mg Q8H PRN ORAL headache & fever 01/01/20 14:47 01/31/20 14:46 Amlodipine Besylate (Norvasc) 5 mg DAILY ORAL 01/01/20 15:00 01/31/20 14:59 01/02/20 08:59 Clonidine HCl (Catapres Tab) 0.1 mg Q4H PRN ORAL Blood pressure over 165 systol 01/01/20 14:45 03/31/20 14:44 Dextrose/Sodium Chloride 1,000 ml @ 50 mls/hr Q20H IV 01/01/20 14:45 01/31/20 14:44 01/02/20 11:09 Tamsulosin HCl (Flomax) 0.4 mg BID ORAL 01/01/20 14:38 01/31/20 14:37 01/02/20 08:59 Laboratory Tests 01/01/20 14:40: Urine Color Pale yellow, Urine Appearance Clear, Urine pH 5, Urine Specific [place] 1.020, Urine Protein 3+H, Urine Glucose (UA) Negative, Urine Ketones Negative, Urine Blood Negative, Urine Nitrite Negative, Urine Bilirubin Negative , Urine Urobilinogen Normal, Urine Leukocyte Esterase Negative, Urine RBC 0, Urine WBC 0-2, Urine Squamous Epithelial Cells None, Urine Bacteria Few, Urine Random Sodium 58 01/02/20 08:35: White Blood Count 5.5, Red Blood Count 4.39L, Hemoglobin 13.6L, Hematocrit 41.1L , Mean Corpuscular Volume 94, Mean Corpuscular Hemoglobin 31.0, Mean Corpuscular Hemoglobin Concent 33.1, Red Cell Distribution Width 11.6, Platelet Count 193, Mean Platelet Volume 6.9, Neutrophils (%) (Auto) 55.8, Lymphocytes (% ) (Auto) 22.2, Monocytes (%) (Auto) 7.7, Eosinophils (%) (Auto) 12.6H, Basophils (%) (Auto) 1.7, Sodium Level 140, Potassium Level 5.4H, Chloride Level 109H, Carbon Dioxide Level 19L, Anion Gap 12, Blood Urea Nitrogen 41H, Creatinine 2.8H, Estimat Glomerular Filtration Rate 27.3, Glucose Level 105, Hemoglobin A1c 6.2H, Uric Acid 7.8H, Calcium Level 8.6, Phosphorus Level 3.4, Magnesium Level 2.1, Total Bilirubin 0.3, Gamma Glutamyl Transpeptidase 13, Aspartate Amino Transf (AST/SGOT) 14L, Alanine Aminotransferase (ALT/SGPT) 12, Alkaline Phosphatase 63, C-Reactive Protein, Quantitative 1.6H, Pro-B-Type Natriuretic Peptide 204H, Total Protein 7.4, Albumin 3.4, Globulin 4.0, Albumin/ Globulin Ratio 0.9L, Thyroid Stimulating Hormone (TSH) 0.260L Height (Feet): 5 Height (Inches): 9.00 Weight (Pounds): 175 General Appearance: no apparent distress Cardiovascular: normal rate Respiratory/Chest: decreased breath sounds Abdomen: distended Adrián Riggins MD Jan 02, 2020 12:51
[2020-01-02] MEDS ORDERED: D5 1/2NS 1,000 ML IV SCH (13:00)
[2020-01-02] MEDS ORDERED: Allopurinol 100mg Tab ORAL SCH (13:00)
[2020-01-02] MEDS: Docusate 100mg cap ORAL SCH ×2 (13:33→18:23)
[2020-01-02] MEDS ORDERED: Vitamin D 50,000 units cap ORAL SCH (14:00)
--- NOTE | 2020-01-02 15:53 | NUR ---
CASE MANAGEMENT:INITIAL REVIEW 69 YR OLD MALE FROM HOME CC;LOWER EXTREMITY INJURY SI;RENAL FAILURE. SOLITARY KIDNEY. RT KNEE SWELLING. 98.3 77 20 157/81 96% ON RA BUN 39 CR 2.8 APTT 34 UA+ PROTEIN COVID RAPID ~ NEGATIVE KNEE XRAY ~ NEGATIVE RENAL US ~ Incidental finding of hepatic cysts. IS;MORPHINE IV ONCE VANCOMYCIN IV ONCE TORADOL IV ONCE ADMITTED TO MED SURG MED SURG STATUS DCP;FROM HOME
[2020-01-02 16:00] VITALS: BP 152/89
--- NOTE | 2020-01-02 16:25 | NUR ---
CM NOTES CLINICALS/REVIEW FAXED TO [facility]
--- NOTE | 2020-01-02 19:17 | NUR ---
NURSE HAND-OFF: Important Events on Shift:N/A Patient Status: ALERT AND AWAKE WATVHING TV Diet: REGULAR Pending Orders: Pending Results/Labs: Pending MD notification: Latest Vital Signs: Temperature 98.2 , Pulse 77 , B/P 152 /89 , Respiratory Rate 18 , O2 SAT 98 , Room Air, O2 Flow Rate . Vital Sign Comment: Latest [place] Fall Score: 35 Fall Risk: Medium Risk Safety Measures: Call light Within Reach, Bed Alarm Zone 1, Side Rails Side Rails x1, Bed position Low and Locked. Fall Precautions: Patient Fall Education Report given to LIZETT.
--- NOTE | 2020-01-02 19:23 | NUR ---
NURSE NOTES: Patient in bed, awake and alert x4. On room air with no signs of distress or SOB. IV intact and patent. Denies pain at this time. Bed locked and in lowest position. Call light in easy reach. Will continue plan of care.
[2020-01-02 20:00] VITALS: BP 151/90
--- NOTE | 2020-01-02 20:08 | NUR ---
NURSE NOTES: Spoke with patient's daughter Don who stated the patient has not been taking all of the medications he normally takes at home; provided RN with the names doses of his home meds. Left message for Dr. Sandra. Awaiting call back.
--- NOTE | 2020-01-02 20:55 | NUR ---
NURSE NOTES: At 2030, RN went to the patient's room and noted the patient was not in his bed or bathroom. RN searched hospital and called security. Security unable to locate patient. No belongings at bedside. Patient's IV had also been removed by patient, and was hanging on IV pole. Hospital gown removed by patient and hanging on chair in room. Patient ANOx4 and ambulatory. Notified security, primary MD, charge coordinator, nurse terminal gauger supervisor and family member Don.
--- NOTE | 2020-01-02 22:45 | History and Physical Report ---
DATE OF ADMISSION: 01/01/2020 HISTORY OF PRESENT ILLNESS: Patient has history of renal cancer, status post resection 2 years ago, in remission, not on chemotherapy. Patient has solitary kidney. Came in because of right knee pain for 5 days. Has been taking NSAIDs and came in with acute onset of acute renal failure and hyperkalemia. The knee was tapped by the ER physician; however, only 3 mL blood came out and no WBC count. So, there is less suspicious of septic arthritis. Patient denies nausea, vomiting, or diarrhea. Denies any fever or chills. Denies shortness of breath. Denies cough. PAST MEDICAL HISTORY: Renal cancer, hypertension, history of shingles in the eye in the past, and hypertension. PAST SURGICAL HISTORY: Right kidney removed. MEDICATIONS: Amlodipine, atenolol, benazepril, clonidine. ALLERGIES: No known allergies. FAMILY HISTORY: Noncontributory. SOCIAL HISTORY: He has history of smoking. Has history of drug abuse and history of alcohol abuse. REVIEW OF SYSTEMS: HEENT: Denies headaches. RESPIRATORY: Denies shortness of breath. Denies cough. CARDIOVASCULAR: Denies chest pain. GASTROINTESTINAL: Denies nausea, vomiting, or diarrhea. EXTREMITIES: Reports right knee pain for 5 days. CENTRAL NERVOUS SYSTEM: Denies any change in speech pattern. PHYSICAL EXAMINATION: VITAL SIGNS: Temperature is 98.2, pulse is 66, blood pressure 146/90. HEENT: PERRLA. NECK: Supple. No lymphadenopathy. CHEST: Clear to auscultation. CARDIOVASCULAR: Regular rate and rhythm. No murmurs or extra sounds. GASTROINTESTINAL: Soft, nontender, nondistended. No organomegaly. EXTREMITIES: Mild edema on the right knee and mildly tender to touch, but is not warm to touch and is not red to touch. Dorsalis pedis pulses are present. He is able to move all extremities. LABORATORY DATA: WBC of 6.8, hemoglobin of 15.2, platelets of 232. Sodium 136, potassium 5.1, BUN of 39, creatinine of 2.8, glucose of 96. ASSESSMENT AND PLAN: Hyperkalemia, acute renal failure, solitary kidney due to removal of nephrectomy due to renal cancer. Renal failure could be from the NSAIDs that he took for knee pain. I have consulted Dr. Jennings, Dr. Riggins, and Dr. Jose Wright to rule out infectious knee as well as for pain management as well as for the management of the renal failure. Most likely, the patient will need IV fluids as well. Julio Sandra M.D. DR: TOMÁS JOB#: [id number] CC:
--- NOTE | 2020-01-02 23:45 | Consultation ---
DATE OF CONSULTATION: 01/02/2020 INFECTIOUS DISEASES CONSULTATION CONSULTING PHYSICIAN: Jose Wright MD PRIMARY ATTENDING PHYSICIAN: Julio Sandra MD REASON FOR CONSULTATION: Right knee arthritis. HISTORY OF PRESENT ILLNESS: This is a 69-year-old male admitted yesterday from home complaining of right knee pain for 5 days and difficulty walking. The patient was taking Motrin, Tylenol, and aspirin at home. The patient was found to have acute renal failure. 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 MEDICATIONS: Amlodipine, Tylenol, clonidine, and Flomax. SOCIAL HISTORY: Single. Smokes occasionally. Denies drug and alcohol abuse. REVIEW OF SYSTEMS: No fever. No chills. No shortness of breath. No coughing. No nausea. No vomiting. No difficulty of urination. He has right knee pain with walking. PHYSICAL EXAMINATION: VITAL SIGNS: Temperature 98.2, pulse 60, and blood pressure is 146/90. GENERAL APPEARANCE: No acute distress. HEENT: [place] conjunctivae. HEART: Normal rate. LUNGS: Clear. ABDOMEN: Soft and nontender. EXTREMITIES: He has no edema. Seems to have arthritic changes of the right knee. No significant effusion. LABORATORY AND DIAGNOSTIC DATA: UA was negative. Renal ultrasound showed hepatic cysts, prostatomegaly, absent right kidney, left renal cortical cyst. Right knee x-ray was negative. IMPRESSION: Right knee arthritis, seems to have septic arthritis. The patient has history of shingles, has acute renal failure, BPH, and hypertension. RECOMMENDATION: Observe off antibiotic. No need for isolation. At the end of my exam, I thank Dr. Sandra for involving me in the care of this patient. Jose Wright M.D. DR: Riki JOB#: [id number] CC: CARRIE
--- NOTE | 2020-01-03 12:33 | Discharge Summary ---
Discharge Summary Discharge Summary _ DATE OF ADMISSION: 01/01/2020 DATE OF DISCHARGE: 01/02/2020 Patient eloped. REASON FOR ADMISSION: 69 years old male with past medical history of hypertension, renal cancer, status post resection 2 years ago, currently had a solitary kidney, arthritis, presented with right knee swelling for 5 days. Patient denied trauma or injury; he denied fall. Due to significant pain patient had to walk with a walker . He had been taking aspirin, Motrin , Tylenol and [place] at home without any relief. He denied calf swelling. No shortness of breath or cough. No hemoptysis. No chest pain. Upon physical examination compartments were soft , patient was able to bear weight and had no neurological deficits. X-ray of the right knee revealed no suprapatellar effusion. No acute fracture or dislocation. Renal ultrasound revealed absent right kidney. No evidence of left hydronephrosis. Prostatomegaly. Vital signs revealed elevated blood pressure 157/81. Laboratory work-up revealed no leukocytosis ,stable hemoglobin ,hematocrit and platelet count. BUN 39, creatinine 2.8. Rapid COVID-19 was negative Urinalysis revealed +3 protein, no evidence of UTI. In emergency department patient received analgesic, empiric antibiotics, IV fluids and admitted for further management. Patient admitted with renal failure , right knee pain, hypertension CONSULTANTS: ID specialist Dr. Jose Wright residential insurance inspector Dr. Riggins pain specialist Dr. Jennings HOSPITAL COURSE: Patient admitted to medical surgical floor. Pain management was addressed as per pain specialist recommendation. Measurement Psychologist closely followed. Patient was on slow hydration. Urine studies were done. Renal parameters and electrolytes were closely monitored , electrolytes corrected as needed. Blood pressure was managed with Norvasc, dose was uptitrated. Clonidine was on board as needed for blood pressure spikes. Flomax dosing was increased to twice a day, Proscar continued. Renal diet provided. Patient started on vitamin D3 and Rocaltrol. Creatinine remained at 2.8. Allopurinol continued. Uric acid 7.8. Measurement Psychologist advised patient to avoid nonsteroid anti-inflammatory and nephrotoxics Kayexalate was given for hyperkalemia. GI prophylaxis provided. Bowel regimen instituted. ID specialist followed. ID specialist recommended to monitor patient off antibiotics. Patient remained afebrile, no leukocytosis. CRP 1.6. On 01/01 in the evening the nurse went to see the patient , and patient was not in the room. RN searched the hospital and call security . Patient apparently eloped. Security was unable to locate the person . Family member was notified of elopement. FINAL DIAGNOSES: Acute renal failure on chronic kidney disease Solitary kidney History of nephrectomy secondary to renal CA Hypertension Swelling of the right knee joint Right knee osteoarthritis BPH I have been assigned to dictate discharge summary for this account. I was not involved in the patient's management. Brynn Escalante NP Jan 03, 2020 12:33
== END 2020-01-02 20:30 | disposition left against medical advice (07) | DRG 469 ==
LOC: EMR 09:36 → 4E 13:05 → EDBEDREQ 13:55
DX: N17.9 Acute kidney failure, unspecified (principal); M17.11 Unilateral primary osteoarthritis, right knee; Z85.53 Personal history of malignant neoplasm of renal pelvis; E87.5 Hyperkalemia; Z90.5 Acquired absence of kidney; I12.9 Hypertensive chronic kidney disease with stage 1 through stage 4 chronic kidney disease, or unspecified chronic kidney disease; N18.9 Chronic kidney disease, unspecified; N40.0 Benign prostatic hyperplasia without lower urinary tract symptoms
CPT/HCPCS: 36415; 76770; 80053; 81001; 82977; 83036; 83735; 83880; 84100; 84300; 84443; 84550; 85025; 85610; 85730; 86140; 87040; 96365; 96368; 96375; 99285; U0002